=== PATIENT | female | born 1975 | race Caucasian/White ===

== ENCOUNTER 2025-01-20 02:31 | Emergency (ER) | payer OTHER, SELFPAY ==
--- NOTE | ~2025-01-20 | US_ITS ---
EXAMINATION: US PELVIC DUPLEX COMPLETE, US PELVIS TRANSABDOMINAL AND TRANSVAGINAL HISTORY: Abnormal right-sided cyst, pain COMPARISON: Correlation is made with an unenhanced CT of the pelvis performed earlier in the day. TECHNIQUE: Transabdominal and endovaginal real-time 2D hayes-scale ultrasound was performed. FINDINGS: Uterus: The uterus is normal in size, measuring 9.4 x 5.3 x 6.4 cm. Myometrium has a normal echotexture. Multiple fibroids are noted including a 7 x 6 x 7 mm posterior fibroid, a 13 x 10 x 12 mm right-sided fibroid, and an 11 x 5 x 9 mm anterior fibroid. Endometrium: The endometrial stripe measures 13 mm in thickness. There are nabothian cysts in the cervix. Right ovary: The right ovary measures 8.5 x 5.8 x 3.9 cm. There is a 7.9 x 5.8 x 5.1 cm septated cyst. Arterial and venous spectral Doppler waveforms are noted in the right ovary. Left ovary: The left ovary measures 3.6 x 2.4 x 2.6 cm. There is a 2.7 x 1.4 x 1.6 cm septated cyst and an additional 1.7 x 1.2 x 1.5 cm cyst. Arterial and venous spectral Doppler waveforms are noted in the left ovary. Pelvic fluid: There is a small amount of free fluid in the cul-de-sac.. US/US pelvic ovarian doppler IMPRESSION: 1. 7.9 x 5.8 x 5.1 cm septated right ovarian cyst. Smaller left-sided cysts as described. Follow-up is recommended. 2. Arterial and venous spectral Doppler waveforms are noted in both ovaries. 3. Fibroid uterus. Electronically signed by: Javad Loco MD 01/20/2025 10:42 AM [facility]
--- NOTE | ~2025-01-20 | US_ITS ---
EXAMINATION: US PELVIC DUPLEX COMPLETE, US PELVIS TRANSABDOMINAL AND TRANSVAGINAL HISTORY: Abnormal right-sided cyst, pain COMPARISON: Correlation is made with an unenhanced CT of the pelvis performed earlier in the day. TECHNIQUE: Transabdominal and endovaginal real-time 2D hayes-scale ultrasound was performed. FINDINGS: Uterus: The uterus is normal in size, measuring 9.4 x 5.3 x 6.4 cm. Myometrium has a normal echotexture. Multiple fibroids are noted including a 7 x 6 x 7 mm posterior fibroid, a 13 x 10 x 12 mm right-sided fibroid, and an 11 x 5 x 9 mm anterior fibroid. Endometrium: The endometrial stripe measures 13 mm in thickness. There are nabothian cysts in the cervix. Right ovary: The right ovary measures 8.5 x 5.8 x 3.9 cm. There is a 7.9 x 5.8 x 5.1 cm septated cyst. Arterial and venous spectral Doppler waveforms are noted in the right ovary. Left ovary: The left ovary measures 3.6 x 2.4 x 2.6 cm. There is a 2.7 x 1.4 x 1.6 cm septated cyst and an additional 1.7 x 1.2 x 1.5 cm cyst. Arterial and venous spectral Doppler waveforms are noted in the left ovary. Pelvic fluid: There is a small amount of free fluid in the cul-de-sac.. US/US pelvic and transvaginal IMPRESSION: 1. 7.9 x 5.8 x 5.1 cm septated right ovarian cyst. Smaller left-sided cysts as described. Follow-up is recommended. 2. Arterial and venous spectral Doppler waveforms are noted in both ovaries. 3. Fibroid uterus. Electronically signed by: Javad Loco MD 01/20/2025 10:42 AM EST
--- NOTE | ~2025-01-20 | CT_ITS ---
CLINICAL HISTORY: R flank pain CT abdomen and pelvis without contrast Comparison: None provided Findings: The lung bases are clear. Abdominal solid organs without acute abnormality or focal lesions. There are no signs of obstructive uropathy. The adrenal glands are nonenlarged. Gallbladder is surgically absent. There is a tiny hiatal hernia. The stomach and bowel loops are nondilated. There is sigmoid colon diverticulosis. Otherwise no focal colonic lesions or pneumatosis. There is no mesenteric inflammation. There is a low-lying cecum in the mid hemipelvis. Appendix is normal. No free fluid, collections or free air. The aorta normal in caliber. No abdominopelvic lymphadenopathy. The bladder is normal. Uterus unremarkable for patient's age. However, there is a large low-attenuation cystic lesion in the right adnexal region measuring 7.3 cm AP, 6 cm transverse a nearly 7 cm craniocaudal. Minimal septations are noted. There is no acute soft tissue or skeletal abnormality in the abdomen or pelvis. IMPRESSION: Nearly 7 x 6 cm slightly septated right-sided adnexal cyst. Recommend surgical waste specialist consultation. There is no pelvic free fluid. The examination is otherwise unremarkable. No significant lymphadenopathy. No signs of obstructive uropathy. This document has been electronically signed by: Dilshad Ramos MD on 01/20/2025 06:21:49
[2025-01-20 02:34] VITALS: BP 105/53; PULSE 76; RESP 16; TEMP 36.6; O2SAT 95; BMI 24.8
[2025-01-20 03:33] LABS: MANUAL DIFF FLAG NO
[2025-01-20 03:34] LABS: Hematocrit 41.7 % (37.0-47.0); Hemoglobin 14.1 g/dl (12.0-16.0); Imm Gran Abs Auto 0.02 X10*3/uL (0.00-0.03); Imm Gran Pct Auto 0.2 % (0.0-0.4); Lymphocytes Absolute Auto 2.4 X10*3/uL (1.2-4.9); Mean Corpuscular HGB Conc 33.8 g/dl (31.0-35.0); Mean Corpuscular Hemoglobin 29.5 pg (27.0-33.0); Mean Corpuscular Volume 87.2 fL (80.0-98.0); NRBC Abs Auto 0.000 X10*3/uL (0.0-0.012); NRBC Pct Auto 0.0 /100WBC (0.0-0.2); Platelet Count 324 X10*3/uL (160-400); Red Blood Count 4.78 X10*6/uL (4.20-5.50); White Blood Count 10.5 X10*3/uL (4.8-10.8)
[2025-01-20 03:38] LABS: Glucose, Whole Blood 107 mg/dL (60-115)
[2025-01-20 03:52] LABS: Anion Gap 12 (12-20); Blood Urea Nitrogen 9 mg/dL (9-16); Calcium 9.0 mg/dL (8.4-10.2); Carbon Dioxide 24 mmol/L (22-29); Chloride 106 mmol/L (96-108); Creatinine Clr Calc Pharmacy 83.2; Estimated Glomerular Filt Rate > 60; Potassium 3.7 mmol/L (3.3-5.1); Sodium 138 mmol/L (135-145)
[2025-01-20 03:57] VITALS: BP 115/64; PULSE 70; RESP 13; O2SAT 97
[2025-01-20] MEDS: Lactated Ringers 1,000 ML 999 ML IV ×2 (04:28→10:14)
--- OUTSIDE RECORDS SUMMARY | 2025-01-20 04:36 | XMS_ITS | Encounter Summary ---
Author Organization Formerly [facility] Address [address] [facility] [address] [place] [address] Phone Care Team Providers Care Web Project Manager Name Role Phone Miranda Gutierrez NP Unavailable [phone] Alyssia Ramos Unavailable Anita Preciado MD Unavailable Candace Calhoun NP Unavailable [phone] Hue Scott MD Unavailable Tim Lew MD Unavailable Violette Monge MD Unavailable Viviane Irizarry DO Primary Care Provider Martha Downs MEDICAL IMAGING DIRECTOR Primary Care Provider Encounter Details Date Type Department Care Team (Latest Contact Info) Description 04/05/2020 Transcribe Orders Virtual Department 30 [place] [address] Viviane Irizarry DO [address] [place], [place] [id number] [email or web address] Transient cerebral ischemia, unspecified type (Primary Dx) Social History Tobacco Use Types Packs/Day Years Used Date Smoking Tobacco: Never Smokeless Tobacco: Never Alcohol Use Standard Drinks/Week Comments Yes 0 (1 standard drink = 0.6 oz pur e alcohol) 1-2 kendy per month Comments Unknown Sex and Gender Information Value Date Recorded Sex Assigned at Not on file Legal Sex Female 6:18 PM EST Gender Identity Not on file Sexual Orientation Not on file documented as of this encounter Plan of Treatment Upcoming Encounters Date Type Department Care Team (Late st Contact Info) Description 09/06/2025 9:00 AM EDT Office Visit [facility] Neurology [address] [place] [address] Levi Hook MD 22 [facility], 2nd [place] [address] [email or web address] documented as of this encounter Visit Diagnoses Diagnosis Transient cerebral ischemia, unspecified type- Primary documented in this encounter Care Teams Web Project Manager Relationship Specialty Start Date End Date Viviane Irizarry DO [address] [place] [phone] PCP - General Internal Medicine 03/01/17 06/04/24 Martha Downs NP [address] [place] [phone] [email or web address] PCP - General Nurse Practitioner 06/05/24 Miranda Gutierrez NP [address] [place] [phone] [email or web address] Historical LMR Provider 11/27/16 Alyssia Ramos FNP [address] [place] [address] 204, [address] [place] [address] [email or web address] Historical LMR Provider 11/27/16 02/18/21 Anita Preciado MD [address] [facility] 204, [address] [place] [address] Historical LMR Provider 11/27/16 02/18/21 Candace Calhoun NP [address] [facility] [address] [place] [phone] Historical LMR Provider 11/27/16 2 Hue Scott MD [address] [place] [address] Historical LMR Provider 11/27/16 2 Tim Lew MD [address] [facility] [address] [place] [address] Historical LMR Provider 11/27/16 02/18/21 Violette Monge MD [address] [place] [address] Orthopedics & Sports Medicine, [place] [address] Historical LMR Provider 11/27/16 documented as of this encounter Additional Source Comments The information contained in this document represents components of the legal health record. It is not the complete legal health record.[facility]
--- OUTSIDE RECORDS SUMMARY | 2025-01-20 04:36 | XMS_ITS | Clinical Summary ---
Author Organization [facility] Address [address] [place] [address] Phone Care Team Providers Care Non Licensed Nuclear Plant Operator Name Role Phone Violette Monge MD Unavailable [phone] Martha Downs NP Primary Care Provider Allergies Active Allergy Reactions Criticality Noted Date Comments Adhesive Dermatitis 09/23/2017 Crab 05/18/2007 House Dust Mite 05/18/2007 Latex Hives,Unknown Medium 04/10/2010 Converted from Generic Allergy: Latex Other 05/18/2007 Pets Pollen Extracts 05/18/2007 Medications albuterol 90 mcg/actuation inhaler 2 puffs as needed 05/23/19 13 Active multivitamin per tablet Active cholecalciferol, vitamin D3, 400 unit capsule Gummy Active cetirizine (ZYRTEC) 10 MG tablet prn Active naproxen sodium (ALEVE) 220 MG tablet Take 220 mg by mouth 2 (two) times a day with meals. Active omeprazole (PRILOSEC) 20 MG tablet Take 20 mg by mouth daily. Active QULIPTA 60 mg tabletIndication s:Intractable migraine with aura with status migrainosus TAKE 1 TABLET BY MOUTH EVERY DAY *NEED INSURANCE* 30 tablet 11 11/25/19 25 Active ZEPBOUND 15 mg/0.5 mL subcutaneous pen INJECT 15MG SUBCUTANEOUSLY ONCE WEEKLY 11/19/19 25 Active Active Problems Problem Noted Date Diagnosed Date Class 3 severe obesity witho ut serious comorbidity with body mass index (BMI) of 40.0 to 44.9 in adult 05/25/2020 Patient currently 02/07/2009 Overview (04/03/2014): Patient currently Polycystic ovaries 08/21/2006 Overview (04/03/2014): PCOS; w/ Hirsutism, Insulin resistence, eval with dr walker Polycystic ovaries 01/16/2005 Overview (04/03/2014): Polycystic ovaries; *See attached note in LMR Assessment & Plan (05/25/2020 10:48 AM EDT): This patient apparently has been diagnosed by [facility] with PCOS at the age of 21. Currently she has 2 children her only concern is mild hirsutism and the obesity. She cannot tolerate Metformin or spironolactone. Using pioglitazone is not good to help because she has normal fasting glucose level she does not have metabolic syndrome. I offer weight loss medications to help her lose weight but she states that she already has a low calorie intake so she does not feel that these medications will be helpful. So this point I really do not have anything to offer. I am willing to prescribe obesity medications obviously we can use Saxenda at this moment because she has to get surgery done and we need to make sure she does not have medullary thyroid carcinoma. The other issue is that she really does not want to do the Qsymia because of the potential for memory loss. Definitely we can try Contrave which is more annoying medication because it is 4 tablets a day. Then again we also have to see if the insurance will cover it. Patient states that she is willing to try Contrave. So I informed her that this medication has to be gradually increase the first week she takes 1 tablet in the morning. The second week she will take 1 tablet twice a day once in the morning 1 in the evening. By the third week she takes 2 tablets in the morning and 1 in the evening by the fourth week she will take 2 tablets twice a day. Depressive disorder 06/26/1999 Overview (04/03/2014): Depression; *See attached note in LMR Vaginitis 11/07/1998 Overview (04/03/2014): Vaginitis; *See attached note in LMR Genital herpes simplex 09/29/1998 Overview (04/03/2014): Genital herpes; *See attached note in LMR Pyelonephritis 01/11/1997 Overview (04/03/2014): Pyelonephritis Uncoded Dysplasia 09/24/1996 Overview (04/03/2014): Dysplasia; *See attached note in LMR Contraception management 09/24/1996 Overview (04/03/2014): Contraception management; *See attached note in LMR Abdominal pain 04/29/1996 Overview (04/03/2014): Abdominal pain Asthma 04/29/1996 Overview (04/03/2014): Asthma; *See attached note in LMR Dysmenorrhea 04/29/1996 Overview (04/03/2014): Dysmenorrhea; *See attached note in LMR Encounters Date Type Department Care Team Description 12/07/2024 10:30 AM EDT Office Visit [facility] Neurology [address] [place] [address] [place] [address] Maite Abrams FNP Intractable migraine with aura with status migrainosus (Primary Dx) 11/23/2024 Refill [facility] Neurology [address] [place] [address] [place] [address] Levi Hook MD Medication Refill 10/26/2024 Telephone [facility] Neurology [address] [place] [address] [place] [address] Levi Hook MD Medication Prior Authorization (PA for QULIPTA 60 mg tablet) from Last 3 Months Immunizations Immunization Administration Dates Next Due [id number] FORMULATION 12/03/2008 Hepatitis B, unspecified formulation 08/21/2006, 07/20/2005,06/22/2005 Influenza, Unspecified Formulation 11/08,12/29/2007,11/19/2006,12/15 MMR 07/23/2005 Meningococcal ACWY, unspecif ied formulation 06/22/2005 Td, unspecified formulation 03/20/2002 Tdap 12/29/2007 Family History Medical History Relation Comments CV disease Child Congenital heart disease Son congeni ken heart disease Thyroid cancer Neg Hx Thyroid disease Neg Hx Relation Status Comments Child Son Social History Tobacco Use Types Packs/Day Years Used Date Smoking Tobacco: Never Smokeless Tobacco: Never Alcohol Use Standard Drinks/Week Comments Not Currently 0 (1 standard drink = 0.6 oz pur e alcohol) 1-2 kendy per month Education Answer Date Recorded Are you interested in more education? Not on georgiana e 06/17/2022 Are you concerned about learning? Not on file 06/17/2022 No 06/17/2022 No 06/17/2022 Digital Access Answer Date Recorded No 07/08/2022 No 07/08/2022 Reliable internet access at home? Not on file 07/08/2022 Device with a working camera? Not on file Comments No Sex and Gender Information Value Date Recorded Sex Assigned at Not on file Legal Sex Female 6:18 PM EST Gender Identity Not on file Sexual Orientation Not on file Last Filed Vital Signs Vital Sign Reading Time Taken Comments Blood Pressure 110/80 12/07/2024 10:41 AM EDT Pulse 96 12/07/2024 10:41 AM EDT Temperature 35.9 C (96.6 F) 09/05/2021 10:38 AM EDT Respiratory Rate 18 09/05/2021 10:53 AM EDT Oxygen Saturation 97% 12/07/2024 10:41 AM EDT Inhaled Oxygen Concentration - - Weight 111.1 kg (245 lb) 09/05/2021 9:50 AM EDT Height 162.6 cm (5' 4 ) 09/05/2021 9:50 AM EDT Body Mass Index 42.05 09/05/2021 9:50 AM EDT Plan of Treatment Upcoming Encounters Date Type Department Care Team (Late st Contact Info) Description 09/06/2025 9:00 AM EDT Office Visit [facility] Neurology [address] [place] [address] Levi Hook MD [address] [place] [address], [address]nd [place] [address] [email or web address] Health Maintenance Due Date Last Done Comments LIPID PANEL 1973 DEPRESSION SCREENING 1985 MAMMOGRAM 2013 Adult Td,Tdap Booster 12/28/2017 12/29/2007, 003 COLOGUARD 2018 FIT TEST 2018 FOBT 2018 SIGMOIDOSCOPY 2018 VIRTUAL COLONOSCOPY 2018 PNEUMOCOCCAL VACCINES (50+ years) (2 of 2 - PCV) 04/02/2020 04/02/2019 RSV VACCINE (1 - Risk 50-74 years 1-dose series) 05/29/2023 ZOSTER VACCINES (1 of 2) 05/29/2023 INFLUENZA VACCINE (#1) 2024 , 12/15/2018, 01/25/2014, Additional history exists COVID-19 VACCINE (3 - 2024- season) 2024 04/30/2020, 04/09/2020 PAP SMEAR 05/21/2027 05/20/2024, 04/0 02/2021, 03/27/2017, Additional history exists COLONOSCOPY 09/06/2031 09/05/2021 COLORECTAL CANCER SCREENING 09/06/2031 HEPATITIS C SCREENING Completed 11/01/1998 HIV ONE-TIME SCREENING (18-65 YEARS) Completed 11/01/1998, 03/25/1996 MENINGOCOCCAL VACCINES (ACWY) Aged Out 06/22/2005 No longer eligible based on patient's age to complete this topic SMOKING STATUS SCREENING (Once After 26 Yrs) Completed 09/05/2021 HEPATITIS A VACCINES Aged Out No long er eligible based on patient's age to complete this topic HIB VACCINES Aged Out No longer eligi ble based on patient's age to complete this topic MENINGOCOCCAL VACCINES (B) Aged Out N o longer eligible based on patient's age to complete this topic Medical Devices Not on file Procedures Procedure Name Priority Date/Time Associated Diagnosis Comments PAP TEST Routine 05/20/2024 12:00 AM EDT ENDOSCOPY, COLON 09/05/2021 9:59 AM EDT from Last 3 Months or Most Recently Relevant to Health Maintenance Results * Pap Test (05/20/2024 12:00 AM EDT) [place] [address] Health Care Liaison: Abdulkadir Kim MD TILER Cytology Report FINAL DIAGNOSIS A. PAP SMEAR (THIN PREP) CE: SPECIMEN ADEQUACY: Satisfactory for evaluation; transformation zone present. Limited by blood INTERPRETATION: NEGATIVE FOR INTRAEPITHELIAL LESION OR MALIGNANCY. Reactive changes. Due to blood, the specimen was reprocessed with 10% Glacial Acetic Acid. This specimen was analyzed by the automated ThinPrep Imaging System ([employer].) and manually rescreened by a electromechanical assembly technician and/or pathologist. Electronically Signed Out By: MD Deepti Romero CT(ASCP) By his/her signature above, the pathologist listed as making the Final Diagnosis certifies that he/she has personally reviewed this case and confirmed or corrected the diagnosis. The Pap test is a screening test primarily for squamous cancers and precursors and has associated false-negative and false-positive results. New technologies such as liquid-based preparations may decrease but will not eliminate all false-negative results. Regular sampling and follow-up of unexplained clinical signs and symptoms are recommended to minimize false negative results. CLINICAL HISTORY Date of Last Menstrual Period: 04-28-2024 Other Clinical Conditions: Screening Pap SPECIMEN SOURCE A: PAP SMEAR (THIN PREP) CE Patient Name: ANUM CERON : 1975 (Age: 48) Sex: F Institution: [facility] Location: [facility] Date of Collection: 05/20/2024 Date of Reported: 05/27/2024 12:58 Results to: Tatyana Anderson [facility] Final Diagnosis A. PAP SMEAR (THIN PREP) CE: SPECIMEN ADEQUACY: Satisfactory for evaluation; transformation zone present. Limited by blood INTERPRETATION: NEGATIVE FOR INTRAEPITHELIAL LESION OR MALIGNANCY. Reactive changes. Due to blood, the specimen was reprocessed with 10% Glacial Acetic Acid. This specimen was analyzed by the automated ThinPrep Imaging System ([employer].) and manually rescreened by a electromechanical assembly technician and/or pathologist. [facility] Conversion Type (Conversion Source) 05/20/2024 05/22/2024 10:37 AM EDT Tatyana Parson TURRET LATHE OPERATOR CYTOLOGY ORDERABLES Edited Result - Final [facility] [address] [place] [address] * ENDOSCOPY, COLON (09/05/2021 9:59 AM EDT) Narrative Transcriptions Adi Dc MD - 09/05/2021 9:59 AM EDT Patient Name: Anum Ceron Attending MD:: ADI DC MD Procedure Date: 09/05/2021 9:59 AM Date of : 1975 Age: 46 Admit Type: Outpatient Gender: Female Room: [facility] 04 Referring MD: Viviane Irizarry MD Exam Type: Colonoscopy Indications: Screening for colorectal malignant neoplasm, Thisis the patient's first colonoscopy Medications: Monitored Anesthesia Care Procedure: Informed consent was obtained from the patientafter discussion of the indications, limitations, alternatives, benefits, and risks of the procedure. Risks specifically discussed include but are not limited to medication reactions, missed lesions, bleeding, perforation, or the need for emergent surgery. Throughout the procedure, the patient's blood pressure, pulse, end-tidal CO2, and oxygensaturations were monitored continuously. The Olympus adult variable colonoscope [id number] #7 was introduced through the anus and advanced to the terminal ileum, with identification of theappendiceal orifice and IC valve. The colonoscopy was performed without difficulty. The patient tolerated the procedure well. The quality of the bowelpreparation was excellent. The terminal ileum, ileocecal valve, appendiceal orifice, and rectum werephotographed. Complications: No immediate complications. Estimated blood loss:None. Findings: The terminal ileum appeared normal. Examination of the right colon was repeated in retroflexion and again in NBI. Retroflexion wasalso performed in the rectum. Multiple diverticula were found in the sigmoidcolon. The exam was otherwise without abnormality. Impression: - The examined portion of the ileum was normal. - Diverticulosis in the sigmoid colon. - The examination was otherwise normal. - No specimens collected. Recommendation: - Patient has a contact number available for emergencies. The signs and symptoms of potential delayed complications were discussed with thepatient. Return to normal activities tomorrow. Written discharge instructions were provided to thepatient. - Repeat colonoscopy in 10 years for screening purposes. Adi Dc ADI DC MD 09/05/2021 10:37:55 AM This report has been signed electronically. Number of Addenda: 0 Note Initiated On: 09/05/2021 9:59 AM Procedure Code(s): --- Professional --- 45130, Colonoscopy, flexible; diagnostic, including collection of specimen(s) by brushing or washing, when performed (separateprocedure) --- Technical --- 45973, Colonoscopy, flexible; diagnostic, including collection of specimen(s) by brushing or washing, when performed (separateprocedure) CPT copyright 2020 [employer]. All rights reserved. The codes documented in this report are preliminary and upon shipyard painter reviewmay be revised to meet current compliance requirements. Procedure Date: 09/05/2021 9:59:14 AM [address] [place] [address] Viviane Aure Irizarry DO GI PROCEDURE ORDERABLES Final Result from Last 3 Months or Most Recently Relevant to Health Maintenance Insurance CIG[employer] PPO CIGNA PPO CIGNA PPO Member Subscriber Plan / Payer (Ef fective 2024-Present) Name:Anum Ceron Relation to Subscriber:Self Name:Anum Ceron Payer ID:[id number] (NA) Type:PPO Address: [address] [place] [id number] [employer] PPO Member Subscriber Plan / Payer (Ef fective 2024-Present) Name:Jie Anum Relation to Subscriber:Self Name:Anum Ceron Payer ID:[id number] ([facility]) Type:PPO Address: [address] [place] [id number] [employer] PPO Member Subscriber Plan / Payer (Ef fective 2024-) Name:Anum Ceron Relation to Subscriber:Self Name:Anum Ceron Payer ID:[id number] ([facility]) Type:PPO Address: [address] [place] [id number] [employer] PPO Care Teams Non Licensed Nuclear Plant Operator Relationship Specialty Start Date End Date Martha Downs NP [address] [place] [phone] [email or web address] PCP - General Nurse Practitioner 06/05/24 Violette Monge MD [address] [place] [address] Orthopedics & Sports Medicine, [place] [address] [email or web address] Historical LMR Provider 11/27/16 Additional Source Comments The information contained in this document represents components of the legal health record. It is not the complete legal health record.[facility]
--- OUTSIDE RECORDS SUMMARY | 2025-01-20 04:36 | XMS_ITS | Encounter Summary ---
Author Organization [facility] Address [address] [place] [address] Phone Care Team Providers Care Colorman Name Role Phone Violette Monge MD Unavailable [phone] Viviane Irizarry DO Primary Care Provider [phone] Martha Downs ASSISTANT MEN'S LACROSSE COACH Primary Care Provider Encounter Details Date Type Department Care Team (Late st Contact Info) Description 04/14/2021 Transcribe Orders Virtual Department [address] [place] [address] Javad Ryder MD [address] [place] [address] [address] [place] [address] [email or web address] Social History Tobacco Use Types Packs/Day Years [...] Description 09/06/2025 9:00 AM EDT Office Visit [facility] Neurology [address] [place] [address] Levi Hook MD 22 [facility], 2nd [place] [address] [email or web address] documented as of this encounter Visit Diagnoses Not on filedocumented in this encounter Care Teams Colorman Relationship Specialty Start Date End Date Viviane Irizarry DO [address] [place] [address] PCP - General Internal Medicine 03/01/17 06/04/24 Martha Downs NP [address] [place] [phone] [email or web address] PCP - General Nurse Practitioner 06/05/24 Violette Monge MD [address] [place] [address] Orthopedics & Sports Medicine, [place] [address] [email or web address] Historical LMR Provider 11/27/16 documented as of this encounter Additional Source Comments The information contained in this document represents components of the legal health record. It is not the complete legal health record.[facility]
--- OUTSIDE RECORDS SUMMARY | 2025-01-20 04:36 | XMS_ITS | Encounter Summary ---
Author Organization [facility] Address [address] [place] [address] Phone Care Team Providers Care Qualifications Examiner Name Role Phone Violette Monge MD Unavailable [phone] Viviane Irizarry DO Primary Care Provider [phone] Martha Downs DOG RAISER Primary Care Provider Encounter Details Date Type Department Care Team (Latest Contact Info) Description 04/14/2021 Transcribe Orders Virtual Department 30 [place] [address] Javad Ryder MD [address] [place] [address] 100 [place] [address] [email or web address] Personal history of malignant neoplasm of thyroid (Primary Dx); Encounter for follow-up examination after completed treatment for malignant neoplasm Social History Tobacco Use Types Packs/Day Years [...] Description 09/06/2025 9:00 AM EDT Office Visit [facility] Neurology [address] [place] [address] Levi Hook MD [address] [facility], 2nd [place] [address] [email or web address] documented as of this encounter Results * US Thyroid Gland (05/02/2021 4:06 PM EDT) Anatomical Region Laterality Modality Neck, Head, Chest Ultrasound 05/03/2021 8:55 AM EDT Impressions 05/03/2021 9:06 AM EDT 1. No thyroid enlargement. 2. Small TI-RADS 1 nodules bilaterally. 3. Multiple bilateral cervical nodes none of which have specifically worrisome features. POS [id number] Narrative 05/03/2021 9:06 AM EDT Ultrasound thyroid and neck. Compare 12/07/2011 The thyroid remains nonenlarged: Right lobe 4.1 x 1.3 x 1.8 cm. Left lobe 3.8 x 1.4 x 1.6 cm. Isthmus 3 mm maximum thickness. RIGHT LOBE: Single 3 x 4 x 5 mm hypoechoic nodule mid lobe. LEFT LOBE: Single 4 x 4 x 4 mm hypoechoic nodule mid lobe, smaller than previous. ISTHMUS: 3 x 4 x 5 mm hypoechoic nodule lower right paramedian. No suspicious calcifications. Normal vascularity on color Doppler imaging throughout the gland. Imaging of the neck shows multiple bilateral nodes, all of which are oval, well-circumscribed with obvious fatty sravani. RIGHT: Upper mid 4 x 8 x 16 mm. Upper lateral 3 x 5 x 9 mm. Paramedian submental 4 x 5 x 7 mm. LEFT: Submental 4 x 5 x 11 mm. Submental 6 x 7 x 11 mm. Upper lateral 3 x 7 x 15 mm. Mid lateral 3 x 7 x 12 mm. Mid lateral 2 x 3 x 8 mm. Supraclavicular 3 x 4 x 7 mm. Supraclavicular 4 x 6 x 8 mm. Procedure Note Atul Moore MD - 05/03/2021 Ultrasound thyroid and neck. Compare 12/07/2011 The thyroid remains nonenlarged: Right lobe 4.1 x 1.3 x 1.8 cm. Left lobe 3.8 x 1.4 x 1.6 cm. Isthmus 3 mm maximum thickness. RIGHT LOBE: Single 3 x 4 x 5 mm hypoechoic nodule mid lobe. LEFT LOBE: Single 4 x 4 x 4 mm hypoechoic nodule mid lobe, smaller than previous. ISTHMUS: 3 x 4 x 5 mm hypoechoic nodule lower right paramedian. No suspicious calcifications. Normal vascularity on color Doppler imaging throughout the gland. Imaging of the neck shows multiple bilateral nodes, all of which are oval,well-circumscribed with obvious fatty sravani. RIGHT: Upper mid 4 x 8 x 16 mm. Upper lateral 3 x 5 x 9 mm. Paramedian submental 4 x 5 x 7 mm. LEFT: Submental 4 x 5 x 11 mm. Submental 6 x 7 x 11 mm. Upper lateral 3 x 7 x 15 mm. Mid lateral 3 x 7 x 12 mm. Mid lateral 2 x 3 x 8 mm. Supraclavicular 3 x 4 x 7 mm. Supraclavicular 4 x 6 x 8 mm. IMPRESSION: 1. No thyroid enlargement. 2. Small TI-RADS 1 nodules bilaterally. 3. Multiple bilateral cervical nodes none of which have specificallyworrisome features. POS [id number] Javad Ryder MD [facility] THYROID Final Res ult documented in this encounter Visit Diagnoses Diagnosis Personal history of malignant neoplasm of thyroid- Primary Encounter for follow-up examination after completed treatment for malignant neoplasm Personal history of malignant neoplasm of thyroid Encounter for follow-up examination after completed treatment for malignant neoplasm documented in this encounter Care Teams Qualifications Examiner Relationship Specialty Start Date End Date Viviane Irizarry DO [address] [place] [address] PCP - General Internal Medicine 03/01/17 06/04/24 Martha Downs NP [address] [place] [phone] [email or web address] PCP - General Nurse Practitioner 06/05/24 Violette Monge MD [address] [place] [address] [facility], [place] [address] [email or web address] Historical LMR Provider 11/27/16 documented as of this encounter Additional Source Comments The information contained in this document represents components of the legal health record. It is not the complete legal health record.[facility]
--- OUTSIDE RECORDS SUMMARY | 2025-01-20 04:36 | XMS_ITS | Encounter Summary ---
Author Organization [facility] Address [address] [facility] [address] [place] [address] Phone Care Team Providers Care Senior Quality Analyst Name Role Phone Miranda Gutierrez NP Unavailable Alyssia RamosP Unavailable [phone] Anita Preciado MD Unavailable Candace Calhoun NP Unavailable [phone] Hue Scott MD Unavailable Tim Lew MD Unavailable Violette Monge MD Unavailable Viviane Irizarry DO Primary Care Provider [phone] Martha Downs HOME HEALTH CARE WORKER Primary Care Provider Encounter Details Date Type Department Care Team (Latest Contact Info) Description 09/04/2019 Transcribe Orders Virtual Department 30 [place] [address] Viviane Irizarry DO [address] [place] [address] [email or web address] Encounter for screening laboratory testing for COVID-19 virus (Primary Dx) Social History Tobacco Use Types [...] Description 09/06/2025 9:00 AM EDT Office Visit [facility] Neurology 22 [place] [address] Levi Hook MD 22 [facility], 2nd [place] [address] [email or web address] documented as of this encounter Results * COVID-19 PCR Order (09/08/2019 4:08 PM EDT) Specimen Source NASOPHARYNGEAL SWAB (HOME HEALTH CARE WORKER) [facility] COVID Testing Status Sent to [facility] Other 09/08/2019 4:08 PM EDT 09/08/2019 6:23 PM EDT us Viviane Irizarry DO LAB GENERAL ORDERABLES Final R esult Performing Organization Address [facility]/State/[facility] Co de Phone Number [facility] 30 [place] [address] documented in this encounter Visit Diagnoses Diagnosis Encounter for screening laboratory testing for COVID-19 virus- Primary documented in this encounter Care Teams Senior Quality Analyst Relationship Specialty Start Date End Date Viviane Irizarry DO [address] [place] [address] PCP - General Internal Medicine 03/01/17 06/04/24 Martha Downs NP [address] [place] [phone] [email or web address] PCP - General Nurse Practitioner 06/05/24 Miranda Gutierrez, SARAH [address] [place] [address] [email or web address] Historical LMR Provider 11/27/16 Alyssia Ramos FNP [address] [facility]. 204, [address] [place] [address] Historical LMR Provider 11/27/16 02/18/21 Anita Preciado MD [address] [place] [address] 204, [address] [place] [address] Historical LMR Provider 11/27/16 02/18/21 Candace Calhoun, SARAH [address] [place] [place] [phone] Historical LMR Provider 11/27/16 2 Hue Scott MD [address] [place] [address] Historical LMR Provider 11/27/16 2 Tim Lew MD [address] [place] [address], [address] [place] [address] Historical LMR Provider 11/27/16 02/18/21 Violette Monge MD [address] [place] [address] [facility], [place] [address] Historical LMR Provider 11/27/16 documented as of this encounter Additional Source Comments The information contained in this document represents components of the legal health record. It is not the complete legal health record.[facility]
--- OUTSIDE RECORDS SUMMARY | 2025-01-20 04:36 | XMS_ITS | Encounter Summary ---
Author Organization [facility] Address [address] [facility] [address] [place] [address] Phone Care Team Providers Care C D Stripper Name Role Phone Violette Monge MD Unavailable [phone] Viviane Irizarry DO Primary Care Provider [phone] Martha Downs TRANSCRIPTION COORDINATOR Primary Care Provider Encounter Details Date Type Department Care Team (Late st Contact Info) Description 09/05/2021 Procedure Pass [facility] Endoscopy Admitting Dept Virtual Department [address] [place] [address] Social History Tobacco Use Types Packs/Day Years Used Date Smoking Tobacco: Never Smokeless Tobacco: Never Alcohol Use Standard Drinks/Week Comments Not Currently 0 (1 standard drink = 0.6 oz pur e alcohol) 1-2 kendy per month Comments No Sex and Gender Information Value Date Recorded Sex Assigned at Not on file Legal Sex Female 6:18 PM EST Gender Identity Not on file Sexual Orientation Not on file documented as of this encounter Plan of Treatment Upcoming Encounters Date Type Department Care Team (Late st Contact Info) Description 09/06/2025 9:00 AM EDT Office Visit [facility] Neurology 22 [place] [address] Levi Hook MD [address] [facility], 2nd [place] [address] documented as of this encounter Visit Diagnoses Not on filedocumented in this encounter Care Teams C D Stripper Relationship Specialty Start Date End Date Viviane Irizarry DO [address] [place] [address] PCP - General Internal Medicine 03/01/17 06/04/24 Martha Downs NP [address] [place] [phone] [email or web address] PCP - General Nurse Practitioner 06/05/24 Violette Monge MD [address] [place] [address] Orth[facility] Sports Medicine, [place] [address] Historical LMR Provider 11/27/16 documented as of this encounter Additional Source Comments The information contained in this document represents components of the legal health record. It is not the complete legal health record.[facility]
--- OUTSIDE RECORDS SUMMARY | 2025-01-20 04:36 | XMS_ITS | Encounter Summary ---
Author Organization [facility] Address [address] [facility] [address] [place] [address] Phone Care Team Providers Care Executive Vice President Name Role Phone Miranda Gutierrez NP Unavailable [phone] Alyssia RamosP Unavailable Anita Preciado MD Unavailable Candace Calhoun NP Unavailable [phone] Hue Scott MD Unavailable Tim Lew MD Unavailable Violette Monge MD Unavailable Viviane Irizarry DO Primary Care Provider [phone] Martha Downs CARTON MAKING MACHINIST Primary Care Provider Encounter Details Date Type Department Care Team (Latest Contact Info) Description 09/09/2019 Transcribe Orders Virtual Department 30 [place] [address] Viviane Irizarry DO 421 [place] [address] [email or web address] Encounter for screening laboratory testing for [...] 9:00 AM EDT Office Visit [facility] Neurology 22 [place] [address] Levi Hook MD 22 [facility], 2nd [place] [address] [email or web address] documented as of this encounter Visit Diagnoses Diagnosis Encounter for screening laboratory testing for COVID-19 virus- Primary documented in this encounter Care Teams Executive Vice President Relationship Specialty Start Date End Date Viviane Irizarry DO [address] [place] [address] PCP - General Internal Medicine 03/01/17 06/04/24 Martha Downs, SARAH [address] [place] [phone] [email or web address] PCP - General Nurse Practitioner 06/05/24 Miranda Gutierrez, SARAH [address] [place] [address] [email or web address] Historical LMR Provider 11/27/16 Alyssia Ramos FNP [address] [place] [address] [address], [address] [place] [address] [email or web address] Historical LMR Provider 11/27/16 02/18/21 Anita Preciado MD 38 [facility] 204, [address] [place] [address] Historical LMR Provider 11/27/16 02/18/21 Candace Calhoun NP [address] [facility] [address] [place] [phone] Historical LMR Provider 11/27/16 2 Hue Scott MD [address] [place] [address] Historical LMR Provider 11/27/16 2 Tim Lew MD [address] [place] [address], [address] [place] [address] Historical LMR Provider 11/27/16 02/18/21 Violette Monge MD [address] [place] [address] [facility] Medicine, [place] [address] Historical LMR Provider 11/27/16 documented as of this encounter Additional Source Comments The information contained in this document represents components of the legal health record. It is not the complete legal health record.[facility]
--- OUTSIDE RECORDS SUMMARY | 2025-01-20 04:36 | XMS_ITS | Encounter Summary ---
Author Organization [facility] Address [address] [facility] [address] [place] [address] Phone Care Team Providers Care Last Inserter Name Role Phone Miranda Gutierrez NP Unavailable Alyssia Ramos Unavailable Anita Preciado MD Unavailable Candace Calhoun NP Unavailable Hue Scott MD Unavailable Tim Lew MD Unavailable Violette Monge MD Unavailable Viviane Irizarry DO Primary Care Provider Viviane Irizarry DO Unavailable Martha Downs INCIDENT RESPONSE CONSULTANT Primary Care Provider Encounter Details Date Type Department Care Team (Late st Contact Info) Description 09/30/2017 Procedure Pass [place] Admitting Dept - Virtual Department 30 [place], [place] [id number] Social History Tobacco Use Types Packs/Day Years [...] Description 09/06/2025 9:00 AM EDT Office Visit [facility] Neurology 22 [place] [address] Levi Hook MD 22 [facility], 2nd [place] [address] [email or web address] documented as of this encounter Visit Diagnoses Not on filedocumented in this encounter Care Teams Last Inserter Relationship Specialty Start Date End Date Viviane Irizarry DO [address] [place] [address] PCP - General Internal Medicine 03/01/17 06/04/24 Martha Downs, SARAH [address] [place] [phone] [email or web address] PCP - General Nurse Practitioner 06/05/24 Miranda Gutierrez, SARAH [address] [place] [address] [email or web address] Historical LMR Provider 11/27/16 Alyssia Ramos FNP [address] [facility] [address], [address] [place] [address] Historical LMR Provider 11/27/16 02/18/21 Anita Preciado MD [address] [facility] [address], [address] [place] [address] Historical LMR Provider 11/27/16 02/18/21 Candace Calhoun NP [address] [place] [address] [address] [place] [address] Historical LMR Provider 11/27/16 2 Hue Scott MD [address] [place] [address] Historical LMR Provider 11/27/16 2 Tim Lew MD [address] [place] [address] [address] [place] [address] Historical LMR Provider 11/27/16 02/18/21 Violette Monge MD [address] [place] [address] [facility], [place] [address] Historical LMR Provider 11/27/16 Viviane Irizarry DO 421 [place] [address] Insurance Assigned Provider 10/12/17 01/12/18 documented as of this encounter Additional Source Comments The information contained in this document represents components of the legal health record. It is not the complete legal health record.[facility]
--- OUTSIDE RECORDS SUMMARY | 2025-01-20 04:36 | XMS_ITS | Encounter Summary ---
Author Organization [employer] [facility] Address [address] [place] [address] Phone Care Team Providers Care Head Stock Operator Name Role Phone Violette Monge MD Unavailable [phone] Viviane Irizarry DO Primary Care Provider [phone] Martha Downs ACID CUTTER Primary Care Provider Encounter Details Date Type Department Care Team (Latest Contact Info) Description 06/03/2023 Transcribe Orders Virtual Department 30 [place] [address] Javad Ryder MD [address] [place] [address] 100 [place] [address] [email or web address] Personal history of malignant neoplasm of thyroid (Primary Dx); Encounter for follow-up examination after completed treatment for malignant neoplasm; Nontoxic single thyroid nodule Social History Tobacco Use Types Packs/Day Years [...] Description 09/06/2025 9:00 AM EDT [facility] 22 [place] [address] Levi Hook MD 22 [facility], 2nd [place] [address] [email or web address] documented as of this encounter Results * US Soft Tissues of Head and Neck (Non-Thyroid) (06/05/2023 12:14 PM EDT) Anatomical Region Laterality Modality Neck, Head Ultrasound 06/06/2023 11:3 0 AM EDT Impressions 06/06/2023 11:36 AM EDT 1. No sonographic abnormality identified in the region of surgical incision. Narrative 06/06/2023 11:36 AM EDT US SOFT TISSUES OF HEAD AND NECK (NON-THYROID) Referring clinician's provided indication for this examination in Epic: Outside Radiology Order; Personal history of malignant neoplasm of thyroid// Encounter for follow-up examination after completed treatment for malignant neoplasm// Nontoxic single thyroid nodule TECHNIQUE: Superficial Ultrasound COMPARISON: None FINDINGS: Superficial scanning was performed of the region of the incision near the left submandibular gland. No discrete mass, cyst, or enlarged lymph node identified. No abnormal fluid collection or hyperemia. Procedure Note Joao Kent MD - 06/06/2023 US SOFT TISSUES OF HEAD AND NECK (NON-THYROID) Referring clinician's provided indication for this examination in Epic:Outside Radiology Order; Personal history of malignant neoplasm ofthyroid// Encounter for follow-up examination after completed treatmentfor malignant neoplasm// Nontoxic single thyroid nodule TECHNIQUE: Superficial Ultrasound COMPARISON: None FINDINGS: Superficial scanning was performed of the region of the incision near theleft submandibular gland. No discrete mass, cyst, or enlarged lymph nodeidentified. No abnormal fluid collection or hyperemia. IMPRESSION: 1. No sonographic abnormality identified in the region of surgicalincision. us Javad Ryder MD IMG US HEAD/NECK NON THYR OID Final Result documented in this encounter Visit Diagnoses Diagnosis Personal history of malignant neoplasm of thyroid- Primary Encounter for follow-up examination after completed treatment for malignant neoplasm Nontoxic single thyroid nodule Nontoxic uninodular goiter Personal history of malignant neoplasm of thyroid Encounter for follow-up examination after completed treatment for malignant neoplasm Nontoxic single thyroid nodule Nontoxic uninodular goiter documented in this encounter Care Teams Head Stock Operator Relationship Specialty Start Date End Date Viviane Irizarry DO [address] [place] [address] PCP - General Internal Medicine 03/01/17 06/04/24 Martha Downs NP [address] [place] [phone] [email or web address] PCP - General Nurse Practitioner 06/05/24 Violette Monge MD [address] [place] [address] Orth[facility] Sports Medicine, [place] [address] Historical LMR Provider 11/27/16 documented as of this encounter Additional Source Comments The information contained in this document represents components of the legal health record. It is not the complete legal health record.[facility]
--- OUTSIDE RECORDS SUMMARY | 2025-01-20 04:36 | XMS_ITS | Encounter Summary ---
Author Organization [facility] Address [address] [facility] [address] [place] [address] Phone Care Team Providers Care Cap Sizer Name Role Phone Miranda Gutierrez NP Unavailable [phone] Alyssia Ramos NETTING WEAVER Unavailable [phone] Anita Preciado MD Unavailable [phone] Candace Calhoun NP Unavailable [phone] Hue Scott MD Unavailable Tim Lew MD Unavailable [phone] Violette Monge MD Unavailable [phone] Viviane Irizarry DO Primary Care Provider [phone] Martha Downs ZIPPER SETTER LOCKSTITCH Primary Care Provider Encounter Details Date Type Department Care Team (Late st Contact Info) Description 05/21/2018 Procedure Pass [facility], [facility] - [address] [place] [address] Social History Tobacco Use Types Packs/Day Years [...] 09/06/2025 9:00 AM EDT Office Visit [facility] Neurology 22 [place] [address] Levi Hook MD [address] [facility], 2nd [place] [address] documented as of this encounter Visit Diagnoses Not on filedocumented in this encounter Care Teams Cap Sizer Relationship Specialty Start Date End Date Viviane Irizarry DO [address] [place] [address] PCP - General Internal Medicine 03/01/17 06/04/24 Martha Downs NP [address] [place] [phone] [email or web address] PCP - General Nurse Practitioner 06/05/24 Miranda Gutierrez, SARAH [address] [place] [address] [email or web address] Historical LMR Provider 11/27/16 Alyssia Ramos FNP [address] [place] [address], [address], [address] [place] [address] Historical LMR Provider 11/27/16 02/18/21 Anita Preciado MD 38 [facility], [address], [address] [place] [address] Historical LMR Provider 11/27/16 02/18/21 Candace Calhoun NP [address] [place] [address] [address] [place] [phone] Historical LMR Provider 11/27/16 2 Hue Scott MD [address] [place] [address] Historical LMR Provider 11/27/16 2 Tim Lew MD [address] [place] [address] [address] [place] [address] [email or web address] Historical LMR Provider 11/27/16 02/18/21 Violette Monge MD [address] [place] [address] [facility], [place] [address] [email or web address] Historical LMR Provider 11/27/16 documented as of this encounter Additional Source Comments The information contained in this document represents components of the legal health record. It is not the complete legal health record.[facility]
--- OUTSIDE RECORDS SUMMARY | 2025-01-20 04:36 | XMS_ITS | Encounter Summary ---
Author Organization [employer] Address [address] [place] [address] Phone Care Team Providers Care Breaker Engineer Name Role Phone Violette Monge MD Unavailable [phone] Viviane Irizarry DO Primary Care Provider [phone] Martha Downs TUMBLER PLATER Primary Care Provider Encounter Details Date Type Department Care Team (Latest Contact Info) Description 03/24/2023 Transcribe Orders Virtual Department [address] [place] [address] Javad Ryder MD [address] [place] [address] [address] [place] [address] [email or web address] Personal history of malignant neoplasm of thyroid (Primary Dx); Nontoxic single thyroid nodule Social History Tobacco [...] Description 09/06/2025 9:00 AM EDT Office Visit [facility] [address] [place] [address] Levi Hook MD [address] [facility], [address] [place] [address] [email or web address] documented as of this encounter Results * US Thyroid Gland (04/12/2023 2:48 PM EST) Anatomical Region Laterality Modality Neck, Head, Chest Ultrasound 04/14/2023 5:32 AM EST Impressions 04/14/2023 12:27 PM EST Unchanged subcentimeter thyroid nodules not meeting TI-RADS criteria for tissue sampling or follow-up imaging. ACR TI-RADS assessment categories can be found at [email or web address]-[email or web address]/[email or web address] Narrative 04/14/2023 12:27 PM EST US THYROID GLAND Referring clinician's provided indication for this examination in [facility]: Outside Radiology Order; Personal history of malignant neoplasm of thyroid/ Nontoxic single thyroid nodule TECHNIQUE: Ultrasound of the thyroid. COMPARISON: US SOFT TISSUES OF HEAD AND NECK (NON-THYROID) FINDINGS: Right Thyroid: The right lobe measures 4.5 cm in sagittal dimension. No significant change in 5 mm predominantly solid isoechoic nodule in the mid gland (TR 3). No right sided adenopathy is detected. Left Thyroid: The left lobe measures 4.4 cm in sagittal dimension. No nodule. No left sided adenopathy is detected. Isthmus: No significant change in 7 mm in predominantly isoechoic solid nodule when remeasured similarly on prior ultrasound (TR 3). Procedure Note Quang Linares MD - 04/14/2023 US THYROID GLAND Referring clinician's provided indication for this examination in Epic:Outside Radiology Order; Personal history of malignant neoplasm ofthyroid/ Nontoxic single thyroid nodule TECHNIQUE: Ultrasound of the thyroid. COMPARISON: US SOFT TISSUES OF HEAD AND NECK (NON-THYROID) FINDINGS: Right Thyroid: The right lobe measures 4.5 cm in sagittal dimension. No significant change in 5 mm predominantly solid isoechoic nodule in themid gland (TR 3). No right sided adenopathy is detected. Left Thyroid: The left lobe measures 4.4 cm in sagittal dimension. No nodule. No left sided adenopathy is detected. Isthmus: No significant change in 7 mm in predominantly isoechoic solid nodule whenremeasured similarly on prior ultrasound (TR 3). IMPRESSION: Unchanged subcentimeter thyroid nodules not meeting TI-RADS criteria fortissue sampling or follow-up imaging. ACR TI-RADS assessment categories can be found [email or web address]-[email or web address] us Javad Ryder MD IMG US THYROID Final Res ult documented in this encounter Visit Diagnoses Diagnosis Personal history of malignant neoplasm of thyroid- Primary Nontoxic single thyroid nodule Nontoxic uninodular goiter Personal history of malignant neoplasm of thyroid Nontoxic single thyroid nodule Nontoxic uninodular goiter documented in this encounter Care Teams Breaker Engineer Relationship Specialty Start Date End Date Viviane Irizarry DO [address] [place] [id number] PCP - General Internal Medicine 03/01/17 06/04/24 Martha Downs NP [address] [place] [phone] [email or web address] PCP - General Nurse Practitioner 06/05/24 Violette Monge MD [address] [place] [address] Orthopedics & Sports Medicine, [place] [address] [email or web address] Historical LMR Provider 11/27/16 documented as of this encounter Additional Source Comments The information contained in this document represents components of the legal health record. It is not the complete legal health record.[facility]
[2025-01-20 06:05] VITALS: BP 117/65; PULSE 76; RESP 14; O2SAT 96
--- NOTE | 2025-01-20 06:53 | ED.ABDPAIN ---
HPI - Abdominal Pain General Chief Complaint: Abdominal Pain Stated Complaint: Stomach Pain Time Seen by Provider: 01/20/25 04:05 Source: patient, family and old records reviewed Mode of arrival: ambulatory Limitations: no limitations History of Present Illness ED Provider: PETR ROBERTS narrative: 49-year-old female with no significant past medical history she did have a prior cholecystectomy. She reports feeling fine yesterday then woke up suddenly around 01:00 with right lower quadrant pain with nausea and chills. She has not vomited but is very queasy. She has not had diarrhea. She has no urinary symptoms. She states she had no issues yesterday and ate normally. She states she has never had pain like this before. She has never had any renal colic. She is unable to take any medications prior to arrival. Patient still has her menses she follows with [facility] for her environmental remediation consultant care MD elicited complaint: abdominal pain Pertinent past history: none Onset (ago): hour(s) (1 a.m.) Pain Consistency: constant Location: RLQ Severity: severe Quality: stabbing Radiation: none Migration to: no migration Exacerbating factors: movement Relieving factors: nothing Associated symptoms: nausea and chills Related Data Previous Rx's ?Medication ?Instructions ?Recorded cefuroxime axetil 250 mg tablet 250 mg PO BID 7 days #14 tabs 01/20/25 ondansetron 4 mg disintegrating 4 mg PO Q8H PRN nausea and 01/20/25 tablet vomiting #20 tabs oxycodone 10 mg tablet 10 mg PO Q6H PRN pain #18 tabs 01/20/25 Allergies Allergy/AdvReac Type Severity Reaction Status Date / Time adhesive tape (ADHESIVE TAPE) Allergy Unknown RASH Verified 01/20/25 02:34 Latex, Natural Rubber Allergy Unknown RASH Verified 01/20/25 02:34 (LATEX, NATURAL RUBBER) adhesives Allergy Unknown severe rash Uncoded 12/01/14 00:00 LATEX Allergy Unknown severe rash Uncoded 12/01/14 00:00 Review of Systems Review of Systems Constitutional : No Weight loss, No Fever, No Chills ENT/Mouth : No sore throat, No Rhinorrhea Eyes: No Swelling, No Redness Cardiovascular : No Chest Pain, No SOB, NoEdema Respiratory : No Cough, No Sputum, No Wheezing Gastrointestinal : Positive Nausea, no Vomiting, no Diarrhea, positive abdominal Pain, No Hematochezia, No Melena Genitourinary : No Dysuria, No Urinary Frequency, No Hematuria, No Urgency Musculoskeletal : No joint pain, No Myalgias, No Joint Swelling Skin : No Skin Lesions, No rash All other systems reviewed and are negative. [facility] Past Medical History Attestation statement: The following information was validated with the patient. Source: old records reviewed Medical History No pertinent past medical history Social History Social History (Updated 01/20/25 @ 07:02 by Emily Young DO) Patient Tobacco Use Status: Never used Tobacco Smoked in Last 30 Days: No Use of substances other than those prescribed or required for medical reasons: No Advance Directives: No Advance Directives Information Provided: Yes Patient : No Physical Exam ED Vital Signs: Vital Signs - 24 hr 01/20/25 02:34 01/20/25 03:57 01/20/25 06:05 Temperature 97.8 F Pulse Rate 76 70 76 Respiratory Rate 16 13 14 Blood Pressure 105/53 L 115/64 117/65 Pulse Oximetry 95 97 96 Oxygen Delivery Method Room Air Room Air Room Air 01/20/25 08:07 Temperature 97.8 F Pulse Rate 82 Respiratory Rate 16 Blood Pressure 118/63 Pulse Oximetry 94 Oxygen Delivery Method Room Air BMI result Body Mass Index 24.8 Appearance: Alert. Oriented X3. No acute distress. Eyes: Pupils equal, round and reactive to light. ENT: Pharynx normal. Neck: Normal inspection. Neck supple. CVS: Normal heart rate and rhythm. Pulses normal. Respiratory: No respiratory distress. Breath sounds normal. Abdomen: Soft but she has moderate tenderness to palpation in the right lower quadrant as well as involuntary guarding. Skin: Skin warm and dry. Normal skin color. Extremities: No lower extremity edema. Neuro: Oriented X 3. No motor deficit. No sensory deficit. Course Course Course Narrative: 7:04 AM 01/20/2025 (PETR FLORES): Repeat IV Dilaudid for pain. Ultrasound ordered given abnormal CT scan I did update the patient with ovarian pathology seen on CT scan. 9:21 AM 01/20/2025 (PETR FLORES): At this time infection suspected. She has a UTI I am going to start on IV antibiotics as well as obtain lactic acid and culture Reevaluation(s) Reevaluation #1: 11:00 AM 01/20/2025 (PETR FLORES): Spoke to her primary care at [facility] they will get the referral going for [facility] environmental remediation consultant onc 11:35 AM 01/20/2025 (PETR FLORES): At this time given the size of the cyst I feel more comfortable discussing with environmental remediation consultant at [facility] since we do not have environmental remediation consultant services here I did reach out to our OB covering but given her age and concern for possible environmental remediation consultant Oncology she needs to be assessed at [facility] her pain was significant where she required IV morphine and IV Dilaudid. I am going to discuss further management of this with the covering [facility] provider Reevaluation #2: 11:55 AM 01/20/2025 (PETR FLORES): I reviewed the case with Dr. Deleon from [facility] plan is to have an outpatient emergent evaluation her pain is well-controlled at this time I have very low suspicion for torsion. Images were sent over to [facility] as well. Patient feels comfortable with plan for DC and given strict precautions for torsion and rupture at home she will follow up at [facility] if any symptoms occur Medical Decision Making Medical Decision Making MDM Narrative: 49-year-old female with no significant past medical history but prior cholecystectomy here with abrupt onset right lower quadrant pain. She is uncomfortable appearing and her abdominal exam she does have moderate tenderness to palpation. At this time given her age and complaint she is going to need basic labs, IV morphine for pain, CT scan to evaluate for further pathology such as appendicitis, renal colic, obstruction, ovarian pathology, constipation. We will repeat exam while pending workup. Differential Diagnosis Differential Diagnoses: The differential diagnosis associated with the presentation includes Renal colic, obstruction, constipation, ovarian pathology, appendicitis Admission/Observation Consideration of admission/observation: Escalation of care including admission/observation considered I spoke to her primary care doctor she has no signs of torsion at this time her pain is not coming and going she had ultrasound when she was as long as her pain is well controlled with oral medications I am going to send her for outpatient emergent referral I discussed all my concerns with her Lab Data MDM Lab Attestation statement: I reviewed the patient's lab results. 01/20/25 03:27 01/20/25 03:27 Labs: Lab Results 12/10/25 12/10/25 12/10/25 Range/Units 03:27 03:34 09:06 WBC 10.5 (4.8-10.8) X10*3/uL RBC 4.78 (4.20-5.50) X10*6/uL Hgb 14.1 (12.0-16.0) g/dl Hct 41.7 (37.0-47.0) % MCV 87.2 (80.0-98.0) fL MCH 29.5 (27.0-33.0) pg MCHC 33.8 (31.0-35.0) g/dl RDW 12.8 (11.0-16.0) % Plt Count 324 (160-400) X10*3/uL MPV 8.7 L (9.4-12.3) fL Immature Gran % (Auto) 0.2 (0.0-0.4) % Neut % (Auto) 68.9 (45-73) % Lymph % (Auto) 22.5 (20-40) % Kinney % (Auto) 6.6 (2-11) % Eos % (Auto) 1.2 (0-4) % Baso % (Auto) 0.6 (0-2) % Lymph # (Auto) 2.4 (1.2-4.9) X10*3/uL Kinney # (Auto) 0.7 (0.1-1.2) X10*3/uL Eos # (Auto) 0.1 (0.0-0.4) X10*3/uL Baso # (Auto) 0.1 (0.0-0.2) X10*3/uL Abs Immat Gran (auto) 0.02 (0.00-0.03) X10*3/uL Absolute Neuts (auto) 7.2 (2.0-8.3) x10*3/uL Absolute Nucleated RBC 0.000 (0.0-0.012) X10*3/uL Nucleated RBC % (auto) 0.0 (0.0-0.2) /100WBC Sodium 138 (135-145) mmol/L Potassium 3.7 (3.3-5.1) mmol/L Chloride 106 (96-108) mmol/L Carbon Dioxide 24 (22-29) mmol/L Anion Gap 12 (12-20) BUN 9 (9-16) mg/dL Creatinine 0.69 (0.5-1.4) mg/dL Estim Creat Clear Calc 83.2 Estimated GFR > 60 POC Glucose 107 (60-115) mg/dL Random Glucose 114 (60-115) mg/dL Lactic Acid (0.5-2.0) mmol/L Calcium 9.0 (8.4-10.2) mg/dL Urine Color Yellow Urine Appearance Turbid Urine pH >= 9.0 (5.0-9.0) Ur Specific Stanfield 1.020 (1.005-1.025) Urine Protein Trace (Neg-Trace) mg/dL Urine Glucose (UA) Negative (Negative) mg/dL Urine Ketones 40 (Negative) mg/dL Urine Blood Negative (Negative) Urine Nitrite Positive H (Negative) Ur Leukocyte Esterase Moderate (2+) H (Negative) Urine RBC 0-2 (0-2) /HPF Urine WBC 6-10 (0-5) /HPF Ur Squamous Epith Cells 11-20 (0-2) /HPF Urine Bacteria Trace (None Seen) Hyaline Casts 0-2 (0-2) /LPF 12//25 Range/Units 10:11 WBC (4.8-10.8) X10*3/uL RBC (4.20-5.50) X10*6/uL Hgb (12.0-16.0) g/dl Hct (37.0-47.0) % MCV (80.0-98.0) fL MCH (27.0-33.0) pg MCHC (31.0-35.0) g/dl RDW (11.0-16.0) % Plt Count (160-400) X10*3/uL MPV (9.4-12.3) fL Immature Gran % (Auto) (0.0-0.4) % Neut % (Auto) (45-73) % Lymph % (Auto) (20-40) % Kinney % (Auto) (2-11) % Eos % (Auto) (0-4) % Baso % (Auto) (0-2) % Lymph # (Auto) (1.2-4.9) X10*3/uL Kinney # (Auto) (0.1-1.2) X10*3/uL Eos # (Auto) (0.0-0.4) X10*3/uL Baso # (Auto) (0.0-0.2) X10*3/uL Abs Immat Gran (auto) (0.00-0.03) X10*3/uL Absolute Neuts (auto) (2.0-8.3) x10*3/uL Absolute Nucleated RBC (0.0-0.012) X10*3/uL Nucleated RBC % (auto) (0.0-0.2) /100WBC Sodium (135-145) mmol/L Potassium (3.3-5.1) mmol/L Chloride (96-108) mmol/L Carbon Dioxide (22-29) mmol/L Anion Gap (12-20) BUN (9-16) mg/dL Creatinine (0.5-1.4) mg/dL Estim Creat Clear Calc Estimated GFR POC Glucose (60-115) mg/dL Random Glucose (60-115) mg/dL Lactic Acid 0.9 (0.5-2.0) mmol/L Calcium (8.4-10.2) mg/dL Urine Color Urine Appearance Urine pH (5.0-9.0) Ur Specific Stanfield (1.005-1.025) Urine Protein (Neg-Trace) mg/dL Urine Glucose (UA) (Negative) mg/dL Urine Ketones (Negative) mg/dL Urine Blood (Negative) Urine Nitrite (Negative) Ur Leukocyte Esterase (Negative) Urine RBC (0-2) /HPF Urine WBC (0-5) /HPF Ur Squamous Epith Cells (0-2) /HPF Urine Bacteria (None Seen) Hyaline Casts (0-2) /LPF Independent Interpretation I performed an independent interpretation of an: Ultrasound (Large ovarian mass normal flow) and CT Scan ( abnormal ovarian pathology) Interpretation: FINDINGS: Uterus: The uterus is normal in size, measuring 9.4 x 5.3 x 6.4 cm. Myometrium has a normal echotexture. Multiple fibroids are noted including a 7 x 6 x 7 mm posterior fibroid, a 13 x 10 x 12 mm right-sided fibroid, and an 11 x 5 x 9 mm anterior fibroid. Endometrium: The endometrial stripe measures 13 mm in thickness. There are nabothian cysts in the cervix. Right ovary: The right ovary measures 8.5 x 5.8 x 3.9 cm. There is a 7.9 x 5.8 x 5.1 cm septated cyst. Arterial and venous spectral Doppler waveforms are noted in the right ovary. Left ovary: The left ovary measures 3.6 x 2.4 x 2.6 cm. There is a 2.7 x 1.4 x 1.6 cm septated cyst and an additional 1.7 x 1.2 x 1.5 cm cyst. Arterial and venous spectral Doppler waveforms are noted in the left ovary. Pelvic fluid: There is a small amount of free fluid in the cul-de-sac.. US/US pelvic ovarian doppler IMPRESSION: 1. 7.9 x 5.8 x 5.1 cm septated right ovarian cyst. Smaller left-sided cysts as described. Follow-up is recommended. 2. Arterial and venous spectral Doppler waveforms are noted in both ovaries. 3. Fibroid uterus Findings: The lung bases are clear. Abdominal solid organs without acute abnormality or focal lesions. There are no signs of obstructive uropathy. The adrenal glands are nonenlarged. Gallbladder is surgically absent. There is a tiny hiatal hernia. The stomach and bowel loops are nondilated. There is sigmoid colon diverticulosis. Otherwise no focal colonic lesions or pneumatosis. There is no mesenteric inflammation. There is a low-lying cecum in the mid hemipelvis. Appendix is normal. No free fluid, collections or free air. The aorta normal in caliber. No abdominopelvic lymphadenopathy. The bladder is normal. Uterus unremarkable for patient's age. However, there is a large low-attenuation cystic lesion in the right adnexal region measuring 7.3 cm AP, 6 cm transverse a nearly 7 cm craniocaudal. Minimal septations are noted. There is no acute soft tissue or skeletal abnormality in the abdomen or pelvis. IMPRESSION: Nearly 7 x 6 cm slightly septated right-sided adnexal cyst. Recommend surgical environmental remediation consultant consultation. There is no pelvic free fluid. The examination is otherwise unremarkable. No significant lymphadenopathy. No signs of obstructive uropathy. This document has been electronically signed by: Dilshad Ramos MD on 01/20/2025 06:21:49 Radiology Impression Discussion of test interpretation with radiology: I have reviewed the radiologist's reading. Independent Historian Clinical information obtained from an independent historian. History obtained from or confirmed by: Spouse External Record Review External record reviewed: Outpatient record Medications Administered Discontinued Medications Generic Name Dose Route Start Last Admin Trade Name Cruzitoq PRN Reason Stop Dose Admin Hydromorphone HCl 0.5 mg 01/20/25 06:54 01/20/25 07:27 Hydromorphone Hcl 0.5 Mg/0.5 Ml Syringe IVPUSH 01/20/25 06:55 0.5 mg ONCE ONE Administration Protocol Lactated Ringer's 1,000 mls @ 999 mls/hr 01/20/25 04:17 01/20/25 05:25 Lr IV 01/20/25 05:17 Infused .Q1H1M ONE Infusion Lactated Ringer's 1,000 mls @ 999 mls/hr 01/20/25 09:20 01/20/25 11:43 Lr IV 01/20/25 10:20 Infused .Q1H1M ONE Infusion Ceftriaxone Sodium 1 gm/ 50 mls @ 100 mls/hr 01/20/25 09:20 01/20/25 11:06 Sodium Chloride IV 01/20/25 09:49 Infused ONCE ONE Infusion Ketorolac Tromethamine 15 mg 01/20/25 04:17 01/20/25 04:28 Ketorolac Tromethamine 15 Mg/Ml Vial IVPUSH 01/20/25 04:18 15 mg ONCE ONE Administration Morphine Sulfate 4 mg 01/20/25 04:17 01/20/25 04:28 Morphine Sulfate 4 Mg/Ml Cartridge IVPUSH 01/20/25 04:18 4 mg ONCE ONE Administration Protocol Ondansetron HCl 4 mg 01/20/25 03:20 01/20/25 04:27 Ondansetron Odt 4 Mg Tab.Rapdis TRANSLINGU 01/20/25 03:21 Not Given ONCE ONE Ondansetron HCl 4 mg 01/20/25 04:17 01/20/25 04:27 Ondansetron Hcl 4 Mg/2 Ml Vial IVPUSH 01/20/25 04:18 4 mg ONCE ONE Administration Oxycodone HCl 5 mg 01/20/25 10:56 01/20/25 11:13 Oxycodone Hcl Immed Release 5 Mg Tablet PO 01/20/25 10:57 5 mg ONCE ONE Administration Discharge Plan Discharge Clinical Impression: Abdominal pain, Acute UTI, Ovarian cyst Patient Disposition: Home, Self-Care Instructions: Ovarian Cyst (ED), Urinary Tract Infection in Women (ED), Abdominal Pain (ED) Additional Instructions: Your labs are reassuring Your urine does have an infection we gave you an IV dose of antibiotics here but you can start your next dose tomorrow morning As discussed please follow-up with [facility] environmental remediation consultant they should be calling you for an appointment if you do not hear from them in 48 hours please call If you have any worsening symptoms such as severe pain, fainting, fevers greater than 100.4, significant vaginal bleeding, or any other concerns Please as advised by the OBGYN we spoke to to show up at [facility] you at [address] On a cephalosporin?antibiotic, softer bowel movements are to be expected. Call your provider if you move your bowels more than 4 times a day, your bowel movements are almost all liquid, or you get a rash.?? FINDINGS: Uterus: The uterus is normal in size, measuring 9.4 x 5.3 x 6.4 cm. Myometrium has a normal echotexture. Multiple fibroids are noted including a 7 x 6 x 7 mm posterior fibroid, a 13 x 10 x 12 mm right-sided fibroid, and an 11 x 5 x 9 mm anterior fibroid. Endometrium: The endometrial stripe measures 13 mm in thickness. There are nabothian cysts in the cervix. Right ovary: The right ovary measures 8.5 x 5.8 x 3.9 cm. There is a 7.9 x 5.8 x 5.1 cm septated cyst. Arterial and venous spectral Doppler waveforms are noted in the right ovary. Left ovary: The left ovary measures 3.6 x 2.4 x 2.6 cm. There is a 2.7 x 1.4 x 1.6 cm septated cyst and an additional 1.7 x 1.2 x 1.5 cm cyst. Arterial and venous spectral Doppler waveforms are noted in the left ovary. Pelvic fluid: There is a small amount of free fluid in the cul-de-sac.. US/US pelvic ovarian doppler IMPRESSION: 1. 7.9 x 5.8 x 5.1 cm septated right ovarian cyst. Smaller left-sided cysts as described. Follow-up is recommended. 2. Arterial and venous spectral Doppler waveforms are noted in both ovaries. 3. Fibroid uterus. Findings: The lung bases are clear. Abdominal solid organs without acute abnormality or focal lesions. There are no signs of obstructive uropathy. The adrenal glands are nonenlarged. Gallbladder is surgically absent. There is a tiny hiatal hernia. The stomach and bowel loops are nondilated. There is sigmoid colon diverticulosis. Otherwise no focal colonic lesions or pneumatosis. There is no mesenteric inflammation. There is a low-lying cecum in the mid hemipelvis. Appendix is normal. No free fluid, collections or free air. The aorta normal in caliber. No abdominopelvic lymphadenopathy. The bladder is normal. Uterus unremarkable for patient's age. However, there is a large low-attenuation cystic lesion in the right adnexal region measuring 7.3 cm AP, 6 cm transverse a nearly 7 cm craniocaudal. Minimal septations are noted. There is no acute soft tissue or skeletal abnormality in the abdomen or pelvis. IMPRESSION: Nearly 7 x 6 cm slightly septated right-sided adnexal cyst. Recommend surgical environmental remediation consultant consultation. There is no pelvic free fluid. The examination is otherwise unremarkable. No significant lymphadenopathy. No signs of obstructive uropathy. Prescriptions: New cefuroxime axetil 250 mg tablet 250 mg PO BID 7 Days Qty: 14 0RF ondansetron 4 mg tablet,disintegrating 4 mg PO Q8H PRN (Reason: nausea and vomiting) Qty: 20 0RF oxycodone 10 mg tablet 10 mg PO Q6H PRN (Reason: pain) Qty: 18 0RF Rx Instructions: Partial Fill upon patient request. you can split dose to 5mg every 6 hours if you feel 10mg is too strong Stand Alone Forms: Work/School Release Print Language: Nepali
[2025-01-20 08:07] VITALS: BP 118/63; PULSE 82; RESP 16; TEMP 36.6; O2SAT 94
[2025-01-20 09:18] LABS: Appearance Urine Turbid; Glucose Urine UA Negative (Negative); PH >= 9.0 (5.0-9.0); Specific Gravity - Urine 1.020 (1.005-1.025); UMIC TRIGGER UACC YES
[2025-01-20 09:34] LABS: UACC Culture Trigger YES
--- NOTE | 2025-01-20 09:49 | PC.NURSE ---
Patient is in ultrasound not able to draw labs and give medications until she gets back.
[2025-01-20] MEDS: oxyCODONE HCl Immed Release 5 MG TABLET PO (11:13)
[2025-01-20 12:09] VITALS: BP 118/63; PULSE 82; RESP 16; TEMP 36.6; O2SAT 94
== END 2025-01-20 12:10 | disposition home or self-care (01) ==
PROVIDERS: Emergency Provider Emergency Medicine
DX: N83.201 Unspecified ovarian cyst, right side (principal); N39.0 Urinary tract infection, site not specified; R10.31 Right lower quadrant pain
CPT/HCPCS: 36415; 74176; 76830; 76856; 80048; 81001; 82947; 83605; 85025; 87040; 87086; 93975; 96361; 96374; 96375; 99284; J0696; J1171; J1885; J2270; J2405; J7120